=== PATIENT | female | born 1990 | race Caucasian/White ===

== ENCOUNTER 2017-07-19 20:49 | Emergency (ER) | payer SELFPAY ==
[~2017-07-19] VITALS: Ht 167.6 cm; Wt 60.0 kg
[~2017-07-19 20:49] MED LIST: CEPH-460 PO
[2017-07-19 20:55] VITALS: BP 129/86; PULSE 71; RESP 16; TEMP 98.1; O2SAT 99
--- NOTE | 2017-07-19 21:09 | PD ---
HPI Chief Complaint: Skin Problem Time Seen by Provider: 21:04 Travel History International Travel<30 days: No Contact w/Intl Traveler<30days: No Traveled to known affect area: No History of Present Illness HPI 27-year-old female presents emergency department for evaluation of painful blisters on her bilateral heels. Patient states she sustained these 2-3 days ago. She felt that they were normal blisters and they were really giving her any issues, however they started becoming more painful yesterday and today she has noticed increasing redness and drainage from them. She has had no fever or chills. She just rates the pain is a constant awareness, soreness. She has no other symptoms to report. PFSH Past Medical History Medical History: Denies Significant Hx ?: Unknown LMP: 07/11/17 Social History Alcohol Use: No Tobacco Use: No Allergies-Medications (Allergen,Severity, Reaction): Coded Allergies: No Known Allergies (Verified Allergy, Unknown, 07/19/17) Reported Meds & Prescriptions Reported Meds & Active Scripts Active Keflex (Cephalexin) 500 Mg Cap 500 Mg PO Q6H 5 Days Bactrim DS (Sulfamethoxazole-Trimethoprim) 800-160 Mg Tab 1 Tab PO BID Review of Systems Except as stated in HPI: all other systems reviewed are Neg Physical Exam Narrative GENERAL: Well-nourished, well-developed p female patient in no acute distress. SKIN: Focused skin assessment warm/dry. 2 cm in diameter blisters on the bilateral heels. There is yellow crusting. There is erythema surrounding about 2 more centimeters on the right, extending a diameter to 4 cm. On the left erythema does extend more onto the posterior calf. There is no induration. No fluctuation. HEAD: Normocephalic. EYES: No scleral icterus. No injection or drainage. NECK: Supple, trachea midline. No JVD or lymphadenopathy. CARDIOVASCULAR: Regular rate and rhythm without murmurs, gallops, or rubs. RESPIRATORY: Breath sounds equal bilaterally. No accessory muscle use. MUSCULOSKELETAL: No cyanosis, or edema. BACK: Nontender without obvious deformity. No CVA tenderness. Data Data Last Documented VS Vital Signs Date Time Temp Pulse Resp B/P (MAP) Pulse Ox O2 Delivery O2 Flow Rate FiO2 07/19/17 20:55 98.1 71 16 129/86 (100) 99 Orders Orders Ed Discharge Order (07/19/17 21:07) MDM Medical Decision Making Medical Screen Exam Complete: Yes Emergency Medical Condition: Yes Medical Record Reviewed: Yes Differential Diagnosis Superficial wound versus infected wound versus abscess versus cellulitis Narrative Course 27-year-old female presents emergency department for evaluation of blisters on the bilateral heels. The one on the left does seem to be becoming infected. Patient is counseled on care. She will be started on oral antibiotics. She agrees to follow-up with a primary care provider. Diagnosis Primary Impression: Blister of foot, left, infected Qualified Codes: S90.822A - Blister (nonthermal), left foot, initial encounter ; L08.9 - Local infection of the skin and subcutaneous tissue, unspecified Additional Impression: Blister of foot, right Qualified Codes: S90.821A - Blister (nonthermal), right foot, initial encounter Referrals: Primary Care Physician Patient Instructions: General Instructions, Wound Infection (ED) Additional Instructions: Keep the wounds clean and dry Follow-up with a primary care provider Return immediately with acute worsening symptoms Med/Other Pt SpecificInfo: Prescription(s) given Scripts Cephalexin (Keflex) 500 Mg Cap 500 MG PO Q6H for Infection for 5 Days, #20 CAP 0 Refills Prov: Viry Corrales 07/19/17 Sulfamethoxazole-Trimethoprim (Bactrim DS) 800-160 Mg Tab 1 TAB PO BID for Infection, #20 TAB 0 Refills Prov: Viry Corrales 07/19/17 Disposition: 01 DISCHARGE HOME Condition: Stable Viry Corrales Jul 19, 2017 21:09
[2017-07-19] MEDS ORDERED: CEPH-460 PO (21:11)
[2017-07-19] MEDS ORDERED: BACT800T5 PO (21:11)
== END 2017-07-19 21:16 | disposition home or self-care (01) ==
LOC: NEPD 20:49
DX: S90.821A Blister (nonthermal), right foot, initial encounter (principal); S90.822A Blister (nonthermal), left foot, initial encounter; L08.9 Local infection of the skin and subcutaneous tissue, unspecified; X58.XXXA Exposure to other specified factors, initial encounter
CPT/HCPCS: 99283